=== PATIENT | female | born 1985 | race Caucasian/White ===

== ENCOUNTER 2022-01-30 05:39 | Emergency (ER) | payer OTHER, SELFPAY ==
[2022-01-30 05:57] VITALS: BP 106/74; PULSE 77; RESP 16; TEMP 37.1; O2SAT 100; BMI 27.5
--- NOTE | 2022-01-30 06:17 | CRLHL7_ITS ---
For Patients: As a result of the Cures Act, medical imaging exams and procedure reports are released immediately into your electronic medical record. You may view this report before your referring provider. If you have questions, please contact your health care provider. INDICATION: left rib pain COMPARISON: none TECHNIQUE: PA chest and left ribs. FINDINGS: The lungs are clear. There is no evidence of pulmonary contusion, pneumothorax or pleural effusion. The heart and pulmonary vessels are of normal size. Oblique detail views of the ribs demonstrate no evidence of fracture or intrinsic bone lesion. There is no evidence of pleural hematoma. IMPRESSION: IMPRESSION:Negative chest and left ribs. Dictated by James Dasilva MD @ 01/30/2022 8:25:21 AM (Electronically Signed)
--- NOTE | 2022-01-30 06:18 | ED_ITS ---
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 This is been bothersome for the past five nights. Ibuprofen does help. She felt a strain to the muscles in this area several weeks ago while exercising. Ibuprofen took the pain away at that time and she was without pain for almost two weeks. She has had no skin rash and ironically recently had an episode of shingles on her posterior left thigh. She has pain with deep inspiration. No change in the pain with position. At times it feels like a brief spasm. No fevers or chills. Related Data Home Medications Medication Instructions Recorded Confirmed bupropion HCl 150 mg 24 hr tablet, ea PO 01/15/22 01/15/22 extended release duloxetine 60 mg capsule,delayed cap PO 01/15/22 01/15/22 release spironolactone 100 mg tablet 100 mg PO 01/15/22 01/15/22 Previous Rx's Medication Instructions Recorded valacyclovir 1 gram tablet 1,000 mg PO TID #21 tabs 01/15/22 cyclobenzaprine 10 mg tablet 10 mg PO HS #14 tabs 01/30/22 prednisone 50 mg tablet 50 mg PO DAILY #5 tabs 01/30/22 Allergies Allergy/AdvReac Type Severity Reaction Status Date / Time No Known Drug Allergies Allergy Verified 01/15/22 12:40 Review of Systems Status of ROS: Reports: 10 or more systems reviewed and unremarkable except as noted in History and below [facility] Medical History (Updated 01/30/22 @ 06:23 by James Freeman MD) Asthma, exercise induced Atypical squamous cells of undetermined significance on cytologic smear of cervix (ASC-US) Celiac disease Depression Fibromyalgia TEJA (generalized anxiety disorder) Migraine without aura and without status migrainosus, not intractable Positive EMERITA (antinuclear antibody) Surgical History (Updated 01/30/22 @ 06:19 by Cabrera Mustafa RN) S/P wisdom tooth extraction Social History (Updated 01/30/22 @ 06:23 by James Freeman MD) Narrative: , 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 Mild discomfort with deep inspiration. HEENT: Conjunctiva clear. Neck is supple without adenopathy, thyromegaly. Lungs: Clear to auscultation in all mesa. No wheezes, rales, rhonchi. No pleural rub. Mild tenderness to palpation along the lower left ribs. No crepitus. No bony deformity. No tenderness along the costochondral joints. Heart: Regular rate and rhythm without murmur or rub. Extremities: No cyanosis or edema. Good distal pulses. Skin: No abnormalities noted of the exposed skin. She recently had an area of shingles on her posterior left leg. Neurologic: Awake, alert, fully oriented. Neurologic exam is nonfocal. Const: Vital Signs, click to edit/add: Vital Signs - 24 hr 01/30/22 05:57 Temperature 98.7 F Pulse Rate [Left P ulse Oximeter] 77 Respiratory Rate 16 Blood Pressure [Le ft Upper Arm] 106/74 Pulse Oximetry 100 Oxygen Delivery Me thod Room Air Documenting provider has reviewed patient's vital signs: yes Course Course Hospital Course: Patient seen and examined. She is in no distress. Chest x-ray with rib details is ordered. Reevaluation(s) Reevaluation #1: Chest x-ray with rib details is normal. Vital Signs Vital signs: Initial Vital Signs Temperature 98.7 F 01/30/22 05:57 Temperature Source Temporal Artery Scan 01/30/22 05:57 Pulse Rate 77 01/30/22 05:57 Pulse Rhythm 01/30/22 05:57 Respiratory Rate 16 01/30/22 05:57 Blood Pressure 106/74 01/30/22 05:57 Blood Pressure Mean 84 01/30/22 05:57 Blood Pressure Position Sitting 01/30/22 05:57 Pulse Oximetry 100 01/30/22 05:57 Oxygen Delivery Method 01/30/22 05:57 Vital Signs Temperature 98.7 F 01/30/22 05:57 Pulse Rate 77 01/30/22 05:57 Respiratory Rate 16 01/30/22 05:57 Blood Pressure 106/74 01/30/22 05:57 Pulse Oximetry 100 01/30/22 05:57 Oxygen Delivery Method 01/30/22 05:57 Temperature 98.7 F 01/30/22 05:57 Pulse Rate 77 01/30/22 05:57 Respiratory Rate 16 01/30/22 05:57 Blood Pressure 106/74 01/30/22 05:57 Pulse Oximetry 100 01/30/22 05:57 Oxygen Delivery Method 01/30/22 05:57 Discharge Plan Discharge Clinical Impression: Rib pain on left side Patient Disposition: Home, Self-Care Condition: Stable Additional Instructions: Ice, gentle stretching, ibuprofen 600 mg 3 times daily with food. Prednisone 50 mg daily for five days. Flexeril 10 mg at bedtime. Follow-up in the clinic if worsening or not improving. Prescriptions: New cyclobenzaprine 10 mg tablet 10 mg PO HS Qty: 14 0RF prednisone 50 mg tablet 50 mg PO DAILY Qty: 5 0RF No Action duloxetine 60 mg capsule,delayed release(DR/EC) PO spironolactone 100 mg tablet 100 mg PO bupropion HCl 150 mg tablet extended release 24 hr PO Label Comments: TAKE ONE TABLET BY MOUTH EVERY MORNING valacyclovir 1 gram tablet 1,000 mg PO TID Qty: 21 0RF Follow Up/Referrals: Provider,Not a Local [Primary Care Provider] - Stand Alone [facility]: [facility] Inst[facility]
== END 2022-01-30 06:47 | disposition home or self-care (01) ==
LOC: ED 06:25
PROVIDERS: Emergency Provider Family Medicine
DX: R07.81 Pleurodynia (principal)
CPT/HCPCS: 71101; 99282; 99283